=== PATIENT | female | born 1965 | race Caucasian/White ===

== ENCOUNTER → 2018-02-04 10:04 | Outpatient (CLI) | payer OTHER, SELFPAY ==
[2018-02-04 11:24] LABS: Basophils Percent Auto 0.3 % (0-2); Eosinophils Percent Auto 0.3 % (2-4); Hematocrit 40.4 % (36-46); Hemoglobin 13.7 g/dL (12.0-16.0); Lymphocytes Percent Auto 25.1 % (25-40); Mean Corpuscular HGB Conc 33.9 % (30-36); Mean Corpuscular Hemoglobin 31.8 PG (26-34); Mean Corpuscular Volume 93.9 fL (80-100); Monocytes Percent Auto 4.8 % (3-14); Neutrophils Absolute Auto 4500 /uL (3000-5900); Neutrophils Percent Auto 69.5 % (50-75); Platelet Count 183 X10^3/uL (150-400); White Blood Cell Count 6.4 X10^3/uL (4.5-11.0)
[2018-02-04 11:26] LABS: Add Manual Diff / Slide Review SLIDE REVIEW
[2018-02-04 11:29] LABS: D Dimer 230 ng/mL (<230)
[2018-02-04 11:33] LABS: Alanine Aminotransferase 33 IU/L (9-52); Albumin 4.3 g/dL (3.5-5.0); Albumin Globulin Ratio 1.5 (1.0-2.8); Alkaline Phosphatase 56 U/L (38-126); Aspartate Aminotransferase 34 IU/L (14-36); BUN Creatinine Ratio 18.3 (6-22); Bilirubin Total 0.5 mg/dL (0.2-1.3); Blood Urea Nitrogen 11 mg/dL (7-17); Calcium 8.5 mg/dL (8.4-10.2); Carbon Dioxide 24 mmol/L (22-32); Chloride 107 mmol/L (98-107); Estimated Glomerular Filt Rate > 60.0 mL/min (>60); Globulin 2.8 g/dL (1.7-4.1); Glucose 92 mg/dL (70-100); HEMOLYSIS < 15 (0-50); Sodium 141 mmol/L (137-145); Total Protein 7.1 g/dL (6.3-8.2)
[2018-02-04 11:39] LABS: B Type Natriuretic Peptide 40.7 (<100)
[2018-02-04 12:02] LABS: Thyroid Stimulating Hormone 0.57 uIU/mL (0.47-4.68)
== END ==
PROVIDERS: PCP Internal Medicine; Visit Provider Internal Medicine
DX: R53.83 Other fatigue (principal)
CPT/HCPCS: 36415; 80053; 83880; 84443; 85025; 85379

== ENCOUNTER → 2018-02-07 10:10 | Outpatient (CLI) | payer OTHER, SELFPAY ==
--- NOTE | 2018-02-07 10:13 | DI.RAD.S_ITS ---
PROCEDURE: XR CHEST 2V INDICATIONS: shortness of breath TECHNIQUE: 2 views of the chest were acquired. COMPARISON: [facility], , CHEST 2 VIEW, 05/21/2014, 12:25. FINDINGS: Surgical changes and devices: None. Lungs and pleura: No pleural effusions or pneumothorax. Lungs are clear. Mediastinum: Mediastinal contours are normal. Heart size is minimal prominent. Bones and chest wall: No suspicious bony abnormalities. Soft tissues appear unremarkable. IMPRESSION: No acute pulmonary process. Dictated by: Debi Berry M.D. on 02/07/2018 at 10:59 Approved by: Debi Berry M.D. on 02/07/2018 at 11:01
== END ==
PROVIDERS: PCP Internal Medicine; Visit Provider Internal Medicine
DX: R06.02 Shortness of breath (principal)
CPT/HCPCS: 71046

== ENCOUNTER → 2018-02-10 11:00 | Outpatient (CLI) | payer OTHER, SELFPAY ==
--- NOTE | 2018-02-22 12:35 | P.HOLT.S_ITS ---
Nephrology Social Worker Report Referral & Results Date Patient Seen: 02/10/18 Requesting provider: Maksim Roberts Indication: Palpitations Duration of monitoring (days): 3 Diary information: There was 1 diary entry associated with sinus rhythm and 8 patient triggered events also associated with sinus rhythm Data: Minimum heart rate identified was 47 beats per minute at 03:31 on 2017 Maximum sinus heart rate was 159 beats per minute at 06:33 on 02/13/2018. 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 No etiology for sense of palpitations identified on this study
== END ==
PROVIDERS: Family Provider Family Medicine; PCP Internal Medicine; Visit Provider Internal Medicine
DX: R00.2 Palpitations (principal)
CPT/HCPCS: 0296T

== ENCOUNTER → 2018-02-10 15:59 | Outpatient (CLI) | payer OTHER, SELFPAY ==
[2018-02-10 17:53] LABS: Appearance Urine UA CLEAR; Bilirubin Urine UA NEGATIVE (NEGATIVE); Color Urine UA YELLOW; Glucose Urine UA NEGATIVE (Normal); Ketones Urine UA TRACE (NEGATIVE); Leukocyte Esterase Urine UA NEGATIVE (NEGATIVE); Nitrite Urine UA Negative (Negative); Occult Blood Urine UA NEGATIVE (Negative); Protein Urine UA NEGATIVE (Negative); Specific Gravity Urine UA 1.025 (1.000-1.035); Urobilinogen Urine UA 0.2 E.U./dL (0.2)
[2018-02-10 18:01] LABS: Bacteria Urine Few (2-10); Culture Indicated Urine Cult Not Indicated; Mucus Urine 1+ (Negative); RBC Urine 1-5/HPF (0-5/HPF); Squamous Epithelial Cell Urine 1-5 /HPF; WBC Urine 1-5/HPF (0-5/HPF)
== END ==
PROVIDERS: PCP Internal Medicine; Visit Provider Internal Medicine
DX: R10.9 Unspecified abdominal pain (principal); R39.89 Other symptoms and signs involving the genitourinary system; N32.89 Other specified disorders of bladder
CPT/HCPCS: 81001

== ENCOUNTER → 2018-02-11 15:37 | Outpatient (CLI) | payer OTHER, SELFPAY | PROVIDERS: PCP Internal Medicine; Visit Provider Internal Medicine | DX: Z12.11 Encounter for screening for malignant neoplasm of colon (principal); N32.89 Other specified disorders of bladder | CPT/HCPCS: 82274 ==

== ENCOUNTER → 2018-03-04 13:50 | Outpatient (CLI) | payer OTHER, SELFPAY ==
--- NOTE | 2018-03-07 08:04 | PM.PFT.1 ---
Pulmonary Function Test Referral & Results Date Patient Seen: 03/04/18 Requesting provider: Elaina Coronel Indication: Dyspnea Results: The spirometry demonstrates an FVC of 2.42 L which is 80% of predicted. The FEV1 was measured at 1.86 L which is 86% of predicted. The FEV1/FVC ratio was 77 which is 97% of predicted. Following the administration of bronchodilator there was a 12% improvement in FEV1 and a 55% improvement in FEF 25-75%. Lung volumes show an SVC of 2.40 L which is 93% of predicted. The diffusing capacity was measured at 15.8 to which is 97% of predicted. The maximum voluntary ventilation was slightly reduced. Interpretation: This study demonstrates perhaps very mild obstructive lung disease with some evidence of benefit following the administration of bronchodilator. The significant improvement in FEF 25-75% would suggest small airway flow improved the most Clinical correlation suggested
== END ==
PROVIDERS: PCP Internal Medicine; Visit Provider Internal Medicine
DX: R06.00 Dyspnea, unspecified (principal)
CPT/HCPCS: 94010; 94060; 94726; 94729

== ENCOUNTER → 2018-03-10 13:53 | Outpatient (CLI) | payer OTHER, SELFPAY ==
--- NOTE | 2018-03-10 13:54 | DI.ECHO.S_ITS ---
[facility]---------+ [facility] +---------+ : : [address] : : : [place], [place] : : : : [id number] : : : : Phone: [phone]+ Echocardiogram Report + + :Name: LUIS LOMBARDO Study Date: 03/10/2018 Height: 60 in : :[facility] Exam Location: [facility] Weight: 145 lb : : Gender: Female BSA: 1.6 m2 : :: 1965 Age: 52 yrs BP: 130/80 mmHg: :Reason For Study: Dyspnea/ palpitations : :Ordering Physician: Elaina Coronel Performed By: Gris Page : + + Interpretation Summary 1) Normal left ventricular thickness, size, wall motion, and systolic function (EF 60-65%). 2) Normal right ventricular size and function. 3) There is moderate biatrial enlargement. 4) No significant valvular abnormalities. 5) The right ventricular systolic pressure is estimated at 23 mmHg assuming a right atrial pressure of 3 mm Hg. 6) No prior Echo available for comparison. Procedure: A two-dimensional transthoracic echocardiogram with color flow and Doppler was performed. The study quality was technically good. There is no prior echocardiogram noted for this patient. The patient was in normal sinus rhythm during the exam. The patient had occasional PVCs during the exam. Left Ventricle: The left ventricle is normal in size, wall thickness, and systolic function without any focal wall motion abnormalities. The ejection fraction is estimated to be 60-65%. Assessment of diastolic parameters indicates normal left ventricular diastolic function and normal filling pressures. Right Ventricle: The right ventricle is normal in size and function. Atria: There is moderate biatrial enlargement. There is no Doppler evidence for an interatrial shunt. Mitral Valve: The mitral valve is normal in structure and function. There is trace mitral regurgitation. Aortic Valve: The aortic valve is trileaflet. The aortic valve opens well. There is no aortic valve stenosis. No aortic regurgitation is present. Tricuspid Valve: The tricuspid valve is normal in structure and function. There is trace tricuspid regurgitation. The right ventricular systolic pressure is estimated at 23 mmHg assuming a right atrial pressure of 3 mm Hg. Pulmonic Valve: The pulmonic valve is not well visualized. There is trace pulmonic regurgitation. Great Vessels: The aortic root is normal size. The dimensions of the ascending aorta are normal. The aortic arch is normal in size. The pulmonary artery is not well visualized, but is probably normal size. The IVC is of normal diameter and collapses greater than 50% with a sniff. This suggests a low right atrial pressure of 3 mm Hg. Pericardium/ Pleura There is no pericardial effusion. There is no pleural effusion. MMode/2D Measurements & Calculations LVIDd: 4.5 cm LVOT diam: 1.8 cm LVIDs: 2.9 cm Ao root diam: 3.0 cm FS: 36.0 % asc Aorta Diam: 3.0 cm EPSS: 0.14 cm Ao Arch Diam (Prox Trans): 2.1 cm IVSd: 0.77 cm LVPWd: 0.70 cm LV russell. diameter/BSA (cm/m^2): 2.8 LV sys. diameter/BSA (cm/m^2): 1.8 LA A2 area: 21.9 cm2 RA long axis: 5.4 cm LA A4 area: 22.4 cm2 RA area: 19.1 cm2 LA length (vol): 6.2 cm RA vol: 57.5 ml LA vol: 67.2 ml RA : 35.3 ml/m2 LA vol index: 41.3 ml/m2 IVC diam: 2.0 cm RVD1 (basal): 3.4 cm Doppler Measurements & Calculations Ao V2 max: 140.5 cm/sec LVOT Max Niru: 109.4 cm/sec Ao V2 mean: 85.0 cm/sec LV V1 max P.8 mmHg Ao max P.9 mmHg LV V1 VTI: 23.9 cm Ao mean P.7 mmHg MEDINA(I,D): 2.4 cm2 Ao V2 VTI: 27.0 cm MEDINA(V,D): 2.1 cm2 sev ratio: 0.88 MEDINA indexed to BSA (cm^2/m^2): 1.5 MV E max niru: 103.0 cm/sec TR max niru: 218.8 cm/sec MV A max niru: 42.8 cm/sec TR max P.1 mmHg MV E/A: 2.4 PA V2 max: 69.9 cm/sec Med Peak E' Niru: 8.6 cm/sec PA V2 mean: 48.7 cm/sec E/E' med: 12.0 PA mean P.1 mmHg Lat Peak E' Niru: 10.6 cm/sec PA Accel Time: 0.13 sec E/E' lat: 9.7 E/e' average: 10.9 MV dec time: 0.15 sec MV P1/2t: 46.5 msec MV P1/2t max niru: 103.1 cm/sec MVA(P1/2t): 4.7 cm2 Reading Physician:03:22 PM
== END ==
PROVIDERS: PCP Internal Medicine; Visit Provider Internal Medicine
DX: R06.09 Other forms of dyspnea (principal); R00.2 Palpitations
CPT/HCPCS: 93306

== ENCOUNTER 2018-09-22 06:31 | Day surgery (SDC) | payer OTHER, SELFPAY ==
--- NOTE | 2018-09-22 | PATH_ITS ---
[facility] Accession Number: [id number] . 01 Material submitted: . RECTAL POLYP AT 10CM . 02 Diagnosis: Rectum at 10 CM, Polyp: Hyperplastic polyp. Additional step-sections examined. [facility] . 02 Electronically signed: . Roberto Snowden MD, PhD, Pathologist NPI- [id number] . 01 Gross description: . Received one formalin-filled container labeled with the patient's name and labeled rectal polyp. The specimen consists of a 0.2 cm portion of tissue. Entirely submitted in one cassette. ([facility]:[id number]) /[facility] . 02 Pathologist provided ICD-10: K62.1 . 02 CPT . 938223 Performed at: 01 [facility] [address] [id number] MD Bhargav Capellan MD Phone: [phone] Performed at: 02 [facility] [address] [place], [place] [id number] MD Suzy Purcell MD Phone: [phone]
[2018-09-22] MEDS: SODIUM CHLORIDE 0.9% 1,000 ML 200 ML IV (07:19)
[2018-09-22 07:20] VITALS: BP 135/77; PULSE 64; RESP 14; TEMP 36.3; O2SAT 99; BMI 25.4
--- NOTE | 2018-09-22 07:44 | P.HP_ITS ---
History of Present Illness Date Patient Seen: 09/22/18 Time Patient Seen: 07:42 Chief complaint: [id number] Narrative: 53-year-old female presents for colorectal screening. She denies any recent abdominal symptoms. No nausea, vomiting, loss of appetite, abdominal pain, unexplained weight loss, change in bowel habits, diarrhea, constipation, melena, hematochezia, or bright red blood per rectum. Patient History Medical History Low back pain (Acute) Hemorrhoids (Chronic) Ovarian cyst (Chronic) Chickenpox (Resolved ~1968) Fractured coccyx (Resolved) Painful menstrual periods (Resolved) Surgical History History of arthroscopic knee surgery (Resolved ~2016) Family History Father Coronary artery disease Mother Collagenous colitis Basal cell carcinoma Heart disease Grandmother No problems noted. Grandfather Coronary artery disease Hx of CABG Myocardial infarction Grandmother No problems noted. Social History household members: spouse Smoking Status: Never smoker Family & Social History Family History Father Coronary artery disease Mother Collagenous colitis Basal cell carcinoma Heart disease Grandmother No problems noted. Grandfather Coronary artery disease Hx of CABG Myocardial infarction Grandmother No problems noted. Social History: household members spouse Tobacco & Substance use: Smoking Status Never smoker Meds Home Medications Medication Instructions Recorded Confirmed Type [place]-3 09/22/18 History cholecalciferol (vitamin D3) 2,000 unit PO DAILY 09/22/18 09/22/18 History [Vitamin D3] glucosamine-chondroitin 09/22/18 History turmeric 09/22/18 History Allergies Allergy/AdvReac Type Severity Reaction Status Date / Time No Known Drug Allergies Allergy Verified 09/22/18 07:20 Review of Systems Review of Systems All systems reviewed & are unremarkable except as noted in HPI and below Exam Vital Signs (past 8 hours): - 09/22/18 07:20 Temperature 97.4 F L Pulse Rate 64 Respiratory Rate 14 Blood Pressure 135/77 Pulse Oximetry 99 Oxygen Delivery Method Room Air Narrative Exam Narrative: Well-nourished well-developed female in no acute distress. Alert oriented x3 sclera nonicteric regular rate and rhythm. No murmurs. No crackles or wheezes abdomen soft, nondistended, nontender, no masses extremities show no clubbing or cyanosis Objective Labs Labs: no recent laboratory or radiographic studies for review Assessment & Plan Assessment & Plan narrative: 53-year-old female requiring colorectal screening by age criteria. Colonoscopy is recommended. Technical aspects of the procedure were reviewed. Risks, benefits, alternatives were explained. Risks including but not limited to sedation, aspiration, bleeding, pain, missed lesion, incomplete examination, need for radiographic studies, colonic perforation, need for abdominal surgery, and all attendant risks of major abdominal surgery were explained at length. All questions were answered to her satisfaction, and she voiced understanding. Consent was placed on the chart. We will proceed as above.
--- NOTE | 2018-09-22 07:44 | PM.PREOP ---
Pre-operative Note Interval Note History & Physical reviewed/Exam performed by Physician: Yes Changes to H&P: No H&P completed within 30 days and has changed as indicated here:: Patient seen and examined. History physical examination placed on the chart. No changes obviously in the last 15 min. Proceed with colonoscopy today as planned. ASA Class (for procedural sedation): I
[2018-09-22] MEDS: fentaNYL 250 MCG/5 ML INJ IV (07:57)
[2018-09-22] MEDS: MIDAZOLAM 5 MG/5 ML VIAL IV (07:58)
[2018-09-22 08:06] VITALS: BP 101/59; PULSE 61; RESP 20; TEMP 36.6; O2SAT 98
--- NOTE | 2018-09-22 08:07 | P.OP.ENDO_ITS ---
Operative Date/Time/Diagnoses Date of procedure: 09/22/18 Time of procedure: 08:04 Pre-op diagnosis: Colorectal screening Post-op diagnosis: other ( rectal polyp but otherwise normal colon and rectum) Procedure & Clinicians Study performed: 1. Sedation per surgeon 2. Colonoscopy with cold forceps polypectomy Same procedure as scheduled: Yes Indications: 53-year-old female who presents for colorectal screening. Colonoscopy is recommended. Surgeon: Justus Harper Procedure Notes SCOAP/Timeout: yes Procedure in detail: After obtaining informed consent, the patient was brought to the GI suite and placed in the left lateral decubitus position on the examination table. After placement of appropriate monitors, the patient was given incremental doses of Versed and Fentanyl until an appropriate level of sedation was achieved. A time out was held per SCOAP protocol. A digital rectal examination was performed and did not reveal any masses or obstructing lesions. The colonoscope was gently passed into the patient's anus and the entire colon navigated to the level of the cecum with minimal difficulty. terminal ileum was intubated and noted to be grossly normal. Once in the cecum, the scope was withdrawn being sure to go before and beyond all mucosal folds and prominences and get an excellent examination. The findings are noted above. At the level of the rectal vault, the scope was retroflexed and th e internal anal canal was examined. The scope was straightened and air aspirated from the colon. The instrument was removed from the patient's body and the procedure was concluded. The patient was allowed to awaken from sedation without difficulty and taken to the post-anesthesia care unit in good condition. Scope withdrawal time: 8:41 min Sedation minutes: 16 Findings: polyp Specimen(s): other ( Rectal polyp at 10 cm) Complications: none Recommendations: Colonscopy in 5 years and Will call with biopsy results Plan for aftercare: 1. Discharge home Follow up: as needed Disposition: PACU
[2018-09-22 08:13] VITALS: BP 101/61; PULSE 57; RESP 17; O2SAT 97
[2018-09-22 08:18] VITALS: BP 98/63; PULSE 60; RESP 16; O2SAT 96
[2018-09-22 08:40] VITALS: BP 116/72; PULSE 53; RESP 16; TEMP 36.2; O2SAT 100
== END 2018-09-22 08:46 | disposition home or self-care (01) ==
PROVIDERS: PCP Internal Medicine; Visit Provider Surgery
PROC: 0DJD8ZZ Inspection of Lower Intestinal Tract, Via Natural or Artificial Opening Endoscopic (ICD-10-PCS; CPT 45378; principal; 2018-09-22 07:45)
DX: Z12.11 Encounter for screening for malignant neoplasm of colon (principal); K62.1 Rectal polyp
CPT/HCPCS: 45380; 99152; J2250; J3010

== ENCOUNTER → 2019-05-04 07:46 | Outpatient (CLI) | payer OTHER, SELFPAY ==
[2019-05-04 09:27] LABS: Hemoglobin 14.2 g/dL (12.0-16.0); Mean Corpuscular HGB Conc 33.8 % (30-36); Mean Corpuscular Hemoglobin 31.6 PG (26-34); Mean Corpuscular Volume 93.3 fL (80-100); Platelet Count 165 X10^3/uL (150-400); Red Cell Distribution Width 12.9 % (11.6-14.8); White Blood Cell Count 3.9 X10^3/uL (4.5-11.0)
[2019-05-04 10:10] LABS: Alanine Aminotransferase 20 IU/L (9-52); Albumin 4.4 g/dL (3.5-5.0); Albumin Globulin Ratio 1.6 (1.0-2.8); Alkaline Phosphatase 63 U/L (38-126); Aspartate Aminotransferase 33 IU/L (14-36); Bilirubin Total 0.7 mg/dL (0.2-1.3); Blood Urea Nitrogen 12 mg/dL (7-17); Calcium 8.6 mg/dL (8.4-10.2); Carbon Dioxide 26 mmol/L (22-32); Chloride 105 mmol/L (98-107); Cholesterol 191 mg/dL (140-199); Estimated Glomerular Filt Rate > 60.0 mL/min (>60); Globulin 2.8 g/dL (1.7-4.1); Glucose 90 mg/dL (70-100); HDL Cholesterol 56 mg/dL (40-60); HEMOLYSIS < 15 (0-50); LDL Cholesterol Calculated 113 mg/dL (<100); Potassium 4.1 mmol/L (3.4-5.1); Sodium 140 mmol/L (137-145); Total Protein 7.2 g/dL (6.3-8.2); Triglycerides 110 mg/dL (35-150)
[2019-05-04 10:30] LABS: TSH w/ Reflex to FT4 0.81 uIU/mL (0.47-4.68)
== END ==
PROVIDERS: PCP Nurse Practitioner Family; Visit Provider Nurse Practitioner Family
DX: Z00.00 Encounter for general adult medical examination without abnormal findings (principal); Z13.6 Encounter for screening for cardiovascular disorders; Z83.49 Family history of other endocrine, nutritional and metabolic diseases
CPT/HCPCS: 36415; 80053; 80061; 84443; 85027

== ENCOUNTER → 2019-05-15 07:35 | Outpatient (CLI) | payer OTHER, SELFPAY ==
--- NOTE | 2019-05-15 07:36 | DI.US.S_ITS ---
PROCEDURE: US ABDOMEN COMPLETE INDICATIONS: LEFT ABDOMINAL PAIN TECHNIQUE: Real-time scanning was performed of the abdominal and retroperitoneal organs, with image documentation. COMPARISON: US, US PELVIC+TRANSVAG, 09/03/2016, 14:25. [facility], [place], ABDOMEN/PELVIS WITH CONTRAST, 06/05/2016, 12:45. FINDINGS: Liver: Liver is normal in size and homogeneous in echotexture. Gallbladder: No gallstones identified. Normal gallbladder wall. No pericholecystic fluid. Negative sonographic Casas sign. Biliary ducts: Intrahepatic bile ducts are non-dilated. Extrahepatic bile duct caliber measures 2.6 mm. Normal is 6-7 mm or less in diameter, or 10 mm or less post-cholecystectomy. Pancreas: Visualized portions of the pancreas are sonographically normal. Spleen: Spleen is normal in size and homogeneous in echotexture. Kidneys: Kidneys are normal in size and echotexture. Right kidney measures 10.6 cm long; left kidney measures 11.5 cm long. No hydronephrosis or nephrolithiasis. No solid masses. Aorta: Visualized aorta is normal in caliber at less than 3 cm. Iliacs: Proximal common iliac arteries are normal in caliber at less than 2.5 cm. IVC: Intrahepatic inferior vena cava is patent. Miscellaneous: No free abdominal fluid. IMPRESSION: 1. No source for abdominal pain identified. 2. No gallstones Dictated by: Reji FREEDMAN Interpreted: Kirby Rubio MD on 05/15/2019 at 9:16 Approved by: Kirby Rubio M.D. on 05/15/2019 at 10:42
== END ==
PROVIDERS: PCP Nurse Practitioner Family; Visit Provider Nurse Practitioner Family
DX: R10.32 Left lower quadrant pain (principal)
CPT/HCPCS: 76700

== ENCOUNTER → 2020-02-16 10:13 | Outpatient (CLI) | payer OTHER, SELFPAY | PROVIDERS: PCP Nurse Practitioner Family; Visit Provider Nurse Practitioner Family | DX: R35.0 Frequency of micturition (principal) ==

== ENCOUNTER → 2020-10-13 07:35 | Outpatient (CLI) | payer OTHER, SELFPAY ==
[2020-10-13 08:04] LABS: Appearance Urine UA CLEAR; Bilirubin Urine UA NEGATIVE (NEGATIVE); Color Urine UA YELLOW; Glucose Urine UA NEGATIVE (Negative); Ketones Urine UA NEGATIVE (NEGATIVE); Leukocyte Esterase Urine UA TRACE (NEGATIVE); Nitrite Urine UA NEGATIVE (Negative); Occult Blood Urine UA TRACE-INTACT (Negative); Protein Urine UA 2+ (Negative); Specific Gravity Urine UA >=1.030 (1.000-1.035); Urobilinogen Urine UA 0.2 E.U./dL (0.2)
[2020-10-13 08:07] LABS: Hematocrit 43.5 % (36-46); Hemoglobin 14.5 g/dL (12.0-16.0); Mean Corpuscular HGB Conc 33.5 % (30-36); Mean Corpuscular Volume 92.7 fL (80-100); Platelet Count 189 X10^3/uL (150-400); Red Blood Cell Count 4.69 X10^6/uL (4.0-5.2); White Blood Cell Count 4.7 X10^3/uL (4.5-11.0)
[2020-10-13 08:11] LABS: Bacteria Urine Few (2-10); Culture Indicated Urine Specimen Cultured; RBC Urine 0-1/HPF (0-5/HPF); Squamous Epithelial Cell Urine 1-5 /HPF (0-5/HPF); WBC Urine 1-5/HPF (0-5/HPF)
[2020-10-13 08:16] LABS: Alanine Aminotransferase 30 IU/L (<35); Albumin 4.7 g/dL (3.5-5.0); Albumin Globulin Ratio 1.6 (1.0-2.8); Alkaline Phosphatase 81 U/L (38-126); Aspartate Aminotransferase 40 IU/L (14-36); BUN Creatinine Ratio 23.6 (6-22); Bilirubin Total 0.5 mg/dL (0.2-1.3); Blood Urea Nitrogen 17 mg/dL (7-17); Calcium 9.3 mg/dL (8.4-10.2); Carbon Dioxide 28 mmol/L (22-32); Chloride 106 mmol/L (98-107); Cholesterol 253 mg/dL (140-199); Estimated Glomerular Filt Rate > 60.0 mL/min (>60); Glucose 106 mg/dL (70-100); HDL Cholesterol 82 mg/dL (40-60); HEMOLYSIS < 15 (0-50); LDL Cholesterol Calculated 155 mg/dL (<100); Potassium 4.3 mmol/L (3.4-5.1); Sodium 141 mmol/L (137-145); Total Protein 7.7 g/dL (6.3-8.2); Triglycerides 81 mg/dL (35-150)
[2020-10-13 08:47] LABS: TSH w/ Reflex to FT4 0.98 uIU/mL (0.47-4.68)
== END ==
PROVIDERS: PCP Nurse Practitioner Family; Referring Provider Nurse Practitioner Family; Visit Provider Nurse Practitioner Family
DX: Z00.00 Encounter for general adult medical examination without abnormal findings (principal); Z13.6 Encounter for screening for cardiovascular disorders
CPT/HCPCS: 36415; 80053; 80061; 81001; 84443; 85027; 87077; 87086; 87147

== ENCOUNTER → 2020-10-14 14:56 | Outpatient (CLI) | payer OTHER, SELFPAY ==
[2020-10-14] MEDS: COVID-19 VACC #1, MRNA(MOD) 100 MCG/0.5 ML VIAL IM (15:03)
== END ==
PROVIDERS: PCP Nurse Practitioner Family; Visit Provider Internal Medicine
DX: Z23 Encounter for immunization (principal)
CPT/HCPCS: 0011A; 91301

== ENCOUNTER → 2020-10-19 08:04 | Outpatient (CLI) | payer OTHER, SELFPAY ==
[2020-10-19 08:33] LABS: RBC Urine None Seen (0-5/HPF)
[2020-10-19 08:53] LABS: Appearance Urine UA CLEAR; Bilirubin Urine UA NEGATIVE (NEGATIVE); Color Urine UA YELLOW; Glucose Urine UA NEGATIVE (Negative); Ketones Urine UA NEGATIVE (NEGATIVE); Leukocyte Esterase Urine UA TRACE (NEGATIVE); Nitrite Urine UA NEGATIVE (Negative); Occult Blood Urine UA NEGATIVE (Negative); Protein Urine UA NEGATIVE (Negative); Urobilinogen Urine UA 0.2 E.U./dL (0.2)
[2020-10-19 09:40] LABS: Bacteria Urine Few (2-10); Culture Indicated Urine Specimen Cultured; Squamous Epithelial Cell Urine 1-5 /HPF (0-5/HPF); WBC Urine 0-1/HPF (0-5/HPF)
== END ==
PROVIDERS: PCP Nurse Practitioner Family; Referring Provider Nurse Practitioner Family; Visit Provider Nurse Practitioner Family
DX: R82.998 Other abnormal findings in urine (principal)
CPT/HCPCS: 81001; 87077; 87086; 87147

== ENCOUNTER → 2020-11-11 14:45 | Outpatient (CLI) | payer OTHER, SELFPAY ==
[2020-11-11] MEDS: COVID-19 VACC #2, MRNA(MOD) 100 MCG/0.5 ML VIAL IM (15:01)
== END ==
PROVIDERS: PCP Nurse Practitioner Family; Visit Provider Internal Medicine
DX: Z23 Encounter for immunization (principal)
CPT/HCPCS: 0012A; 91301